=== PATIENT | male | born 1970 ===

== ENCOUNTER 2021-07-04 08:08 | Day surgery (SDC) | payer OTHER ==
[2021-07-01 15:43] VITALS: BMI 29.5
[~2021-07-04 08:08] MED LIST: LACTATED RINGERS 1,000 ML IV SCH
[2021-07-04 09:01] VITALS: RESP 16; TEMP 98
[2021-07-04] MEDS ORDERED: ATROPINE SULFATE 0.4 MG/ML 1 ML VIAL ONE (09:59)
[2021-07-04] MEDS ORDERED: GLYCOPYRROLATE 0.2 MG/ML 2 ML VIAL ONE (09:59)
[2021-07-04] MEDS ORDERED: LIDOCAINE 1% INJ 10MG/ML (20 ML MDV) ONE (09:59)
[2021-07-04] MEDS ORDERED: PROPOFOL 10 MG/ML 20 ML VIAL IV ONE (09:59)
--- NOTE | 2021-07-04 10:01 | P.GSHP ---
History of Present Illness H&P Date: 07/04/21 Chief Complaint: Screening colonoscopy This a 50-year-old male presents today for screening colonoscopy. Patient denies any significant GI complaints. Past Medical History Past Medical History: Hyperlipidemia, Hypertension History of Any Multi-Drug Resistant Organisms: None Reported Additional Past Anesthesia/Blood Transfusion Reaction / Comment(s): Has never had anesthesia Smoking Status: Never smoker - Past Family History Mother Family Medical History: Cancer Medications and Allergies Home Medications Medication Instructions Recorded Confirmed Type Aspirin 81 mg PO DAILY 07/01/21 07/01/21 History Atorvastatin [Lipitor] 1 tab PO DAILY 07/01/21 07/04/21 History Bp Medication(Unknown Name) 1 tab PO DAILY 07/01/21 07/04/21 History Cholecalciferol (Vitamin D3) 12.5 mcg PO DAILY 07/01/21 07/01/21 History [Vitamin D3 (500 Iu/5 ML)] Allergies Allergy/AdvReac Type Severity Reaction Status Date / Time No Known Allergies Allergy Verified 07/04/21 08:59 Surgical - Exam Vital Signs Temp Pulse Resp BP Pulse Ox 98.0 F 64 16 141/76 99 07/04/21 09:00 07/04/21 09:00 07/04/21 09:00 07/04/21 09:00 07/04/21 09:00 - General well developed, well nourished, no distress - Eyes PERRL - ENT normal pinna - Neck no masses - Respiratory normal expansion - Cardiovascular Rhythm: regular - Abdomen Abdomen: soft, non tender Assessment and Plan Assessment: We'll perform screening colonoscopy.
--- NOTE | 2021-07-04 10:23 | P.OP ---
Date of Procedure: 07/04/21 Preoperative Diagnosis: Screening colonoscopy Postoperative Diagnosis: Normal colonoscopy Procedure(s) Performed: Colonoscopy Anesthesia: MAC Surgeon: Aj Dumont Pathology: none sent Condition: stable Disposition: PACU Description of Procedure: No PROCEDURE: The patient was placed on the endoscopy table in the lateral position. Digital rectal examination was performed which revealed no abnormalities. The prostate was symmetrical without nodules. Flexible colonoscope was then placed in the patient's anus and passed throughout the entire colon. The ileocecal valve was visualized. The cecum, ascending, transverse, descending and sigmoid colon were normal. The rectum was normal as well. There were no masses, polyps or diverticula noted in the entire colon. SUMMARY OF FINDINGS: Normal colonoscopy.
[2021-07-04 10:40] VITALS: BP 139/95; PULSE 74
== END 2021-07-04 11:26 | disposition home or self-care (01) ==
LOC: ORWHC2ENDO 08:08 → EDBD 10:05 → ORWHC2ENDO 11:26
PROVIDERS: ATTEND Surgery
DX: Z12.11 Encounter for screening for malignant neoplasm of colon (principal); E78.5 Hyperlipidemia, unspecified; I10 Essential (primary) hypertension; Z79.899 Other long term (current) drug therapy; Z79.82 Long term (current) use of aspirin; Z80.9 Family history of malignant neoplasm, unspecified; J45.909 Unspecified asthma, uncomplicated
CPT/HCPCS: J0461; J2001; J2704; G0121; 45378

== ENCOUNTER 2024-08-20 09:07 | Emergency (ER) | payer OTHER ==
[2024-08-20 09:12] VITALS: TEMP 98
--- NOTE | 2024-08-20 09:22 | ED ---
Abdominal Pain HPI - General Chief Complaint: Abdominal Pain Stated Complaint: R side abd pain Time Seen by Provider: 08/20/24 09:13 Source: patient, family, RN notes reviewed Mode of arrival: ambulatory Limitations: no limitations - History of Present Illness Initial Comments: This is a 53-year-old male who presents to the emergency department for right flank pain. States that it started around 3 AM and woke him from his sleep. Pain radiates into the right lower quadrant. He has thrown up 3 times. Denies any urinary symptoms or changes in bowel habits. Denies any history of kidney stones or similar symptoms in the past. He has not had any fevers or chills. MD Complaint: abdominal pain, flank pain - Related Data Home Medications Medication Instructions Recorded Confirmed Aspirin 81 mg PO DAILY 07/01/21 07/01/21 Atorvastatin [Lipitor] 1 tab PO DAILY 07/01/21 07/04/21 Bp Medication(Unknown Name) 1 tab PO DAILY 07/01/21 07/04/21 Cholecalciferol (Vitamin D3) 12.5 mcg PO DAILY 07/01/21 07/01/21 [Vitamin D3 (500 Iu/5 ML)] Previous Rx's Medication Instructions Recorded HYDROcodone/APAP 7.5-325MG [[place] 1 tab PO Q6HR PRN 3 Days #12 tab 08/20/24 7.5-325] Ketorolac [Toradol] 10 mg PO Q6HR PRN #15 tab 08/20/24 Ondansetron Odt [Zofran Odt] 4 mg PO Q8HR PRN #15 tab 08/20/24 Tamsulosin [Flomax] 0.4 mg PO DAILY 7 Days #7 cap 08/20/24 Allergies Allergy/AdvReac Type Severity Reaction Status Date / Time No Known Allergies Allergy Verified 07/04/21 08:59 Review of Systems ROS Statement: Those systems with pertinent positive or pertinent negative responses have been documented in the HPI. ROS Other: All systems not noted in ROS Statement are negative. Past Medical History Past Medical History: Hyperlipidemia, Hypertension History of Any Multi-Drug Resistant Organisms: None Reported Past Surgical History: No Surgical Hx Reported Additional Past Anesthesia/Blood Transfusion Reaction / Comment(s): Has never had anesthesia Past Psychological History: No Psychological Hx Reported Smoking Status: Never smoker - Past Family History Mother Family Medical History: Cancer General Exam Limitations: no limitations General appearance: alert, in distress Head exam: Present: atraumatic, normocephalic, normal inspection Respiratory exam: Present: normal lung sounds bilaterally. Absent: respiratory distress, wheezes, rales, rhonchi, stridor Cardiovascular Exam: Present: regular rate, normal rhythm, normal heart sounds. Absent: systolic murmur, diastolic murmur, rubs, gallop, clicks GI/Abdominal exam: Present: soft, tenderness (RLQ), normal bowel sounds. Absent: distended Back exam: Present: CVA tenderness (R). Absent: CVA tenderness (L) Neurological exam: Present: alert, oriented X3, CN II-XII intact Psychiatric exam: Present: normal affect, normal mood Skin exam: Present: warm, dry, intact, normal color. Absent: rash Course Vital Signs 08/20/24 08/20/24 09:10 11:29 Temperature 98 F 98 F Pulse Rate 58 L 78 Respiratory 20 18 Rate Blood Pressure 188/101 134/78 O2 Sat by Pulse 100 98 Oximetry Medical Decision Making - Medical Decision Making This is a 53-year-old male who presents to the emergency department for right flank pain. Was pt. sent in by a medical professional or institution? @ -No Did you speak to anyone other than the patient for history? @ -No Did you review nursing and triage notes? @ -Yes, and I agree, it is accurate with regards to the patient's symptoms. Were old charts reviewed? @ -No Differential Diagnosis? @ -Differential Flank Pain: UTI, pyelonephritis, kidney stone, musculoskeletal, pancreatitis, cholecystitis, this is not meant to be an all-inclusive list. EKG interpreted by me (3pts min.)? @ -Not obtained X-rays interpreted by me (1pt min.)? @ -Not obtained CT interpreted by me (1pt min.)? @ -CT scan of the abdomen and pelvis obtained. My interpretation identifies a right ureteral calculus. U/S interpreted by me (1pt. min.)? @ -Not obtained What testing was considered but not performed? (CT, X-rays, U/S, labs)? Why? @ -None What meds were considered but not given? Why? @ -None Did you discuss the management of the patient with other professionals? @ -No Did you reconcile home meds? @ -No Was smoking cessation discussed for >3mins.? @ -No Was critical care preformed (if so, how long)? @ -No Were there social determinants of health that impacted care today? How? (Homelessness, low income, unemployed, alcoholism, drug addiction, transportat ion, low edu. Level, literacy, decrease access to med. care, senior care, rehab)? @ -No Was there de-escalation of care discussed even if they declined? (Discuss DNR or withdrawal of care, Hospice)? @ -No What co-morbidities impacted this encounter? (DM, HTN, Smoking, COPD, CAD, Cancer, CVA, Hep., AIDS, mental health diagnosis, sleep apnea, morbid obesity)? @ -None Was patient admitted / discharged? @ -Discharged. Lab work demonstrates leukocytosis with a white blood cell count of 12.9 and lactic acid of 2.5. Urinalysis demonstrates blood but is negative for signs of infection. CT scan of the abdomen and pelvis demonstrates marked right hydronephrosis secondary to an obstructing 8 mm UPJ calculus. Symptoms were well controlled in the emergency department. Advised that based on the size and location of the stone, it is very possible he will be unable to pass this on his own. I did offer admission for pain control, however patient states that he is able to manage his pain at this time and would like to try going home first. Prescription for Toradol, [place], Zofran, and Flomax provided. He was also given information for follow-up with urology and advised to call them first thing Thursday morning. Strict return parameters discussed. Patient discharged home in stable condition. Case discussed with ED attending Dr. Topete. Return precautions reviewed in depth, the patient is instructed to return to the emergency department with any new, worsening, or concerning symptoms. Patient verbalized understanding. Undiagnosed new problem with uncertain prognosis? @ -None Drug Therapy requiring intensive monitoring for toxicity (Heparin, Nitro, Insulin, Cardizem)? @ -None Were any procedures done? @ -None Diagnosis/symptom? @ -Right ureteral calculus, hydronephrosis Acute, or Chronic, or Acute on Chronic? @ -Acute Uncomplicated (without systemic symptoms) or Complicated (systemic symptoms)? @ -Uncomplicated Side effects of treatment? @ -None Exacerbation, Progression, or Severe Exacerbation] @ -Not applicable Poses a threat to life or bodily function? @ -No - Lab Data Result diagrams: 08/20/24 09:38 08/20/24 09:38 Lab Results 08/20/24 08/20/24 08/20/24 Range/Units 09:38 09:38 09:38 WBC 12.9 H (3.8-10.6) k/uL RBC 5.80 (4.30-5.90) m/uL Hgb 17.3 (13.0-17.5) gm/dL Hct 51.1 (39.0-53.0) % MCV 88.2 (80.0-100.0) fL MCH 29.8 (25.0-35.0) pg MCHC 33.8 (31.0-37.0) g/dL RDW 13.0 (11.5-15.5) % Plt Count 280 (150-450) k/uL MPV 7.2 Neutrophils % 78 % Lymphocytes % 16 % Monocytes % 4 % Eosinophils % 0 % Basophils % 0 % Neutrophils # 10.0 H (1.3-7.7) k/uL Lymphocytes # 2.1 (1.0-4.8) k/uL Monocytes # 0.5 (0-1.0) k/uL Eosinophils # 0.0 (0-0.7) k/uL Basophils # 0.0 (0-0.2) k/uL Sodium 139 (137-145) mmol/L Potassium 5.5 H (3.5-5.1) mmol/L Chloride 103 (98-107) mmol/L Carbon Dioxide 24 (22-30) mmol/L Anion Gap 12 mmol/L BUN 14 (9-20) mg/dL Creatinine 1.18 (0.66-1.25) mg/dL Est GFR (CKD-EPI)AfAm 81 (>60 ml/min/1.73 sqM) Est GFR (CKD-EPI)NonAf 70 (>60 ml/min/1.73 sqM) Glucose 187 H (74-99) mg/dL Plasma Lactic Acid [place] (0.7-2.0) mmol/L Calcium 10.2 (8.4-10.2) mg/dL Total Bilirubin 1.1 (0.2-1.3) mg/dL AST 45 (17-59) U/L ALT 47 (4-49) U/L Alkaline Phosphatase 71 (38-126) U/L Total Protein 8.2 (6.3-8.2) g/dL Albumin 5.2 H (3.5-5.0) g/dL Urine Color Yellow Urine Appearance Clear (Clear) Urine pH 5.5 (5.0-8.0) Ur Specific [place] 1.025 (1.001-1.035) Urine Protein 1+ H (Negative) Urine Glucose (UA) Trace H (Negative) Urine Ketones Negative (Negative) Urine Blood Small H (Negative) Urine Nitrite Negative (Negative) Urine Bilirubin Negative (Negative) Urine Urobilinogen <2.0 (<2.0) mg/dL Ur Leukocyte Esterase Negative (Negative) Urine RBC 9 H (0-5) /hpf Urine WBC 4 (0-5) /hpf Ur Squamous Epith Cells <1 (0-4) /hpf Calcium Oxalate Crystal Occasional H (None) /hpf Urine Mucus Moderate H (None) /hpf 08/20/24 Range/Units 09:38 WBC (3.8-10.6) k/uL RBC (4.30-5.90) m/uL Hgb (13.0-17.5) gm/dL Hct (39.0-53.0) % MCV (80.0-100.0) fL MCH (25.0-35.0) pg MCHC (31.0-37.0) g/dL RDW (11.5-15.5) % Plt Count (150-450) k/uL MPV Neutrophils % % Lymphocytes % % Monocytes % % Eosinophils % % Basophils % % Neutrophils # (1.3-7.7) k/uL Lymphocytes # (1.0-4.8) k/uL Monocytes # (0-1.0) k/uL Eosinophils # (0-0.7) k/uL Basophils # (0-0.2) k/uL Sodium (137-145) mmol/L Potassium (3.5-5.1) mmol/L Chloride (98-107) mmol/L Carbon Dioxide (22-30) mmol/L Anion Gap mmol/L BUN (9-20) mg/dL Creatinine (0.66-1.25) mg/dL Est GFR (CKD-EPI)AfAm (>60 ml/min/1.73 sqM) Est GFR (CKD-EPI)NonAf (>60 ml/min/1.73 sqM) Glucose (74-99) mg/dL Plasma Lactic Acid [place]undo 2.5 H* (0.7-2.0) mmol/L Calcium (8.4-10.2) mg/dL Total Bilirubin (0.2-1.3) mg/dL AST (17-59) U/L ALT (4-49) U/L Alkaline Phosphatase (38-126) U/L Total Protein (6.3-8.2) g/dL Albumin (3.5-5.0) g/dL Urine Color Urine Appearance (Clear) Urine pH (5.0-8.0) Ur Specific [place] (1.001-1.035) Urine Protein (Negative) Urine Glucose (UA) (Negative) Urine Ketones (Negative) Urine Blood (Negative) Urine Nitrite (Negative) Urine Bilirubin (Negative) Urine Urobilinogen (<2.0) mg/dL Ur Leukocyte Esterase (Negative) Urine RBC (0-5) /hpf Urine WBC (0-5) /hpf Ur Squamous Epith Cells (0-4) /hpf Calcium Oxalate Crystal (None) /hpf Urine Mucus (None) /hpf - Radiology Data Radiology results: report reviewed, image reviewed Disposition Clinical Impression: Right ureteral calculus, Hydronephrosis Disposition: HOME SELF-CARE Instructions (If sedation given, give patient instructions): Renal Colic (ED), Hydronephrosis (ED), Ureteral Stones (ED) Additional Instructions: Return to the emergency department with any new, worsening, or concerning symptoms. Take the Toradol with Tylenol as needed for pain relief. If you choose to take the Toradol, do not take any other anti-inflammatories such as ibuprofen, take one or the other. Take the [place] sparingly when your pain is the most severe. Take the Zofran up to every 8 hours as needed for nausea and vomiting. Take the Flomax daily for 7 days, unless your pain resolves, in which case you can discontinue it sooner. Contact the urologist listed below first thing Thursday morning. Let them know that you were seen in the emergency department and found to have an 8 mm stone in your ureter. They will schedule you for a follow-up appointment. Prescriptions: Tamsulosin [Flomax] 0.4 mg PO DAILY 7 Days #7 cap HYDROcodone/APAP 7.5-325MG [[place] 7.5-325] 1 tab PO Q6HR PRN 3 Days #12 tab PRN Reason: Pain Ketorolac [Toradol] 10 mg PO Q6HR PRN #15 tab PRN Reason: Pain Ondansetron Odt [Zofran Odt] 4 mg PO Q8HR PRN #15 tab PRN Reason: Nausea And Vomiting Is patient prescribed a controlled substance at d/c from ED?: Yes When asked, does pt state using other controlled substances?: No If prescribed controlled substance>3 days was MAPS reviewed?: Prescribed <3 Days Referrals: Alicia Payton MD [Primary Care Provider] - 1-2 days To Britton MD [STAFF PHYSICIAN] - 1-2 days Time of Disposition: 11:19
[2024-08-20] MEDS: SODIUM CHLORIDE 0.9% 1,000 ML IV STA (09:30)
[2024-08-20] MEDS: KETOROLAC 15 MG/ML 1 ML VIAL IVP STA ×2 (09:31→10:49)
[2024-08-20] MEDS: ONDANSETRON 4 MG/2 ML VIAL IVP STA (09:32)
[2024-08-20] MEDS: MORPHINE SULFATE 4 MG/ML SYRINGE IVP STA (09:34)
[2024-08-20 10:01] LABS: Basophils % (A) 0 %; Eosinophils % (A) 0 %; HCT 51.1 % (39.0-53.0); HGB 17.3 gm/dL (13.0-17.5); Lymphocytes # (A) 2.1 k/uL (1.0-4.8); Lymphocytes % (A) 16 %; MCH 29.8 pg (25.0-35.0); MCHC 33.8 g/dL (31.0-37.0); MCV 88.2 fL (80.0-100.0); Mean Platelet Volume 7.2; Monocytes # (A) 0.5 k/uL (0-1.0); Monocytes % (A) 4 %; Neutrophils % (A) 78 %; Platelet Count 280 k/uL (150-450); WBC 12.9 k/uL (3.8-10.6)
[2024-08-20 10:13] LABS: Appearance,Urine Clear (Clear); Bilirubin,Urine Negative (Negative); Blood,Urine Small (Negative); Calcium Oxalate Crystals,Urine Occasional /hpf; Color,Urine Yellow; Glucose,Urine (UA) Trace (Negative); Ketones,Urine Negative (Negative); Leukocyte Esterase,Urine Negative (Negative); Mucus,Urine Moderate /hpf; Nitrite,Urine Negative (Negative); PH, Urine 5.5 (5.0-8.0); Protein,Urine 1+ (Negative); RBC,Urine 9 /hpf (0-5); Specific Gravity,Urine 1.025 (1.001-1.035); Squamous Epithelial Cell,Urine <1 /hpf (0-4); Urobilinogen,Urine <2.0 mg/dL (<2.0); WBC,Urine 4 /hpf (0-5)
[2024-08-20 10:22] LABS: ALT 47 U/L (4-49); African American GFR (CKD) 81 (>60 ml/min/1.73 sqM); Anion Gap 12 mmol/L; Blood Urea Nitrogen 14 mg/dL (9-20); Calcium 10.2 mg/dL (8.4-10.2); Carbon Dioxide 24 mmol/L (22-30); Chloride 103 mmol/L (98-107); Glucose 187 mg/dL (74-99); Non-African American GFR(CKD) 70 (>60 ml/min/1.73 sqM); Sodium 139 mmol/L (137-145); Total Bilirubin 1.1 mg/dL (0.2-1.3)
--- NOTE | 2024-08-20 10:34 | CT ---
EXAMINATION TYPE: CT abdomen pelvis wo con DATE OF EXAM: 08/20/2024 HISTORY: RT flank pain CT DLP: 700.4 mGycm. Automated Exposure Control for Dose Reduction was Utilized. TECHNIQUE: CT scan of the abdomen and pelvis is performed without oral or IV contrast. COMPARISON: None FINDINGS: Within the limitations of a non-contrast study, the following observations are made. The lungs are clear. Gallbladder is normal and there is no gallstone, wall thickening, pericholecystic fluid or distention . There is no biliary ductal dilatation. There is no organomegaly of the liver, pancreas, spleen or adrenal glands. There is marked right hydronephrosis secondary to an 8 mm obstructing UPJ calculus. The left kidney i s unremarkable without calcification or hydronephrosis. The caliber of the abdominal aorta is normal and there is no retroperitoneal adenopathy or hemorrhage . The bowel loops are normal in caliber is no evidence of obstruction. No inflammatory changes are iden tified in the mesentery and there is no free intraperitoneal air or fluid. There is no pelvic mass, free fluid, abscess or adenopathy. There is mild diverticulosis of the colon without CT evidence of diverticulitis. The osseous structures and soft tissues are unremarkable. IMPRESSION: Marked right hydronephrosis secondary to an obstructing 8 mm UPJ calculus [facility], , 08/20/2024 10:32 AM
[2024-08-20 10:57] LABS: Potassium 5.5 mmol/L (3.5-5.1); Total Protein 8.2 g/dL (6.3-8.2)
[2024-08-20 10:58] LABS: AST 45 U/L (17-59); Albumin 5.2 g/dL (3.5-5.0); Alkaline Phosphatase 71 U/L (38-126)
[2024-08-20] MEDS: ACET/COD 300 MG/30 MG STARTER PACK 6 TAB BTL PO STA (11:26)
[2024-08-20 11:30] VITALS: BP 134/78; PULSE 78; RESP 18
== END 2024-08-20 11:30 | disposition home or self-care (01) ==
LOC: EC 09:07
DX: N13.2 Hydronephrosis with renal and ureteral calculous obstruction (principal)
CPT/HCPCS: 36415; 80053; 83605; 85025; 81001; 74176; 99284; 96374; 96375 ×2; 96376; 96361; J2270; J2405; J1885

== ENCOUNTER → 2024-08-29 | Outpatient (CLI) | payer OTHER ==
--- NOTE | 2024-08-29 08:01 | XR ---
EXAMINATION TYPE: XR KUB DATE OF EXAM: 08/29/2024 Comparison: CT 08/20/2024 Clinical History: 53-year-old male history of right-sided stone, N20.0 calculus Findings: Moderate stool right side of the abdomen. Air extends distally to the rectum. Nonobstructive bowel ga s pattern. 8 mm stone right paramedian mid abdomen within the mid ureter, fairly similar location fro m patient's prior CT. Impression: 8 mm stone mid right ureter, similar compared to 08/20/2024. [facility], , 08/29/2024 7:59 AM
== END | disposition home or self-care (01) ==
LOC: RADXRMAIN 05:48
PROVIDERS: ATTEND Urology
DX: N20.0 Calculus of kidney (principal)
CPT/HCPCS: 74018

== ENCOUNTER 2024-08-31 09:04 | Day surgery (SDC) | payer OTHER ==
--- NOTE | 2024-08-30 21:00 | P.GSHP ---
History of Present Illness H&P Date: 08/30/24 53 yo male with a 8 mm right ureteral stone in the mid to proximal ureter with persistent pain. He was given options of treatment and comes for a right ureteroscopy with laser lithostripsy and possible stent. The risks and coplictions have been outlines. He is afebrile and there is no evidence of uti. this is his first stone. - Constitutional Constitutional: Denies chills, Denies fever - EENT Eyes: denies blurred vision, denies pain Ears, nose, mouth and throat: Denies headache, Denies sore throat - Cardiovascular Cardiovascular: Denies chest pain, Denies shortness of breath - Respiratory Respiratory: Denies cough, Denies 7 - Gastrointestinal Gastrointestinal: Denies abdominal pain, Denies diarrhea, Denies nausea, Denies vomiting - Genitourinary (Female) Genitourinary: Denies dysuria, Denies hematuria - Genitourinary (Male) Genitourinary: Denies dysuria, Denies hematuria - Musculoskeletal Musculoskeletal: Denies myalgias - Integumentary Integumentary: Denies pruritus, Denies rash - Neurological Neurological: Denies numbness, Denies weakness - Psychiatric Psychiatric: Denies anxiety, Denies depression - Endocrine Endocrine: Denies fatigue, Denies weight change Past Medical History Past Medical History: Hyperlipidemia, Hypertension Additional Past Medical History / Comment(s): kidney stones History of Any Multi-Drug Resistant Organisms: None Reported Past Surgical History: No Surgical Hx Reported Past Anesthesia/Blood Transfusion Reactions: No Reported Reaction Additional Past Anesthesia/Blood Transfusion Reaction / Comment(s): Has never had anesthesia Smoking Status: Never smoker - Past Family History Mother Family Medical History: Cancer Medications and Allergies Home Medications Medication Instructions Recorded Confirmed Type Ketorolac [Toradol] 10 mg PO Q6HR PRN #15 tab 08/20/24 08/30/24 Rx Ondansetron Odt [Zofran Odt] 4 mg PO Q8HR PRN #15 tab 08/20/24 08/30/24 Rx HYDROcodone/APAP 5-325MG [[place] 1 tab PO Q6H PRN 08/24/24 08/30/24 History 5-325] Allergies Allergy/AdvReac Type Severity Reaction Status Date / Time No Known Allergies Allergy Verified 08/30/24 08:52 Results - Imaging Abdominal x-ray: report reviewed, image reviewed CT scan - abdomen: report reviewed, image reviewed CT scan - pelvis: report reviewed, image reviewed Assessment and Plan Assessment: Impression Right ureteral stone with colic Plan: right ureteroscopy with laser lithotripsy and possible stent.
--- NOTE | 2024-08-31 09:41 | XR ---
EXAMINATION TYPE: XR KUB DATE OF EXAM: 08/31/2024 HISTORY: Pain Comparison: 08/29/2024 Single KUB is submitted for interpretation. Findings: Right renal calculi: None Visualized. Right ureteral calculi: Right ureteral calculus measuring 8 mm is noted in the right L3 transverse pr ocess and appears to have migrated approximately 1 cm. Left renal calculi: None Visualized. Left ureteral calculi: None Visualized. Pelvic calcifications: None Visualized. Bowel gas pattern is unremarkable. No free air. No mass effects. IMPRESSION: 1. Right ureteral calculus measuring 8 mm is noted at the right L3 transverse process level and appea rs to have migrated approximately 1 cm. [facility], , 08/31/2024 9:38 AM
[2024-08-31] MEDS: ONDANSETRON 4 MG/2 ML VIAL IVP ONE (09:53)
[2024-08-31] MEDS: DEXAMETHASONE SOD PHOSPHATE 4 MG/ML 1 ML VIAL IV ONE (09:53)
[2024-08-31] MEDS: LACTATED RINGERS 1,000 ML IV SCH (09:56)
[2024-08-31] MEDS: IV FLUID CONTINUATION 1,000 ML IV ONE ×2 (09:56→12:19)
[2024-08-31] MEDS ORDERED: GLYCOPYRROLATE 0.2 MG/ML 2 ML VIAL ONE (11:19)
[2024-08-31] MEDS ORDERED: PHENYLEPHRINE-0.9% NACL SYG 1,000 MCG/10 ML SYRINGE ONE (11:19)
[2024-08-31] MEDS ORDERED: PROPOFOL 10 MG/ML 20 ML VIAL IV ONE (11:19)
[2024-08-31] MEDS ORDERED: LIDOCAINE 1% INJ 10MG/ML (20 ML MDV) ONE (11:19)
[2024-08-31] MEDS ORDERED: fentaNYL (PF) 50 MCG/ML 2 ML AMP ONE (11:19)
[2024-08-31] MEDS ORDERED: MIDAZOLAM 2 MG/2 ML VIAL ONE (11:19)
--- NOTE | 2024-08-31 12:17 | P.OP ---
Date of Procedure: 08/31/24 Preoperative Diagnosis: right ureteral calculus Postoperative Diagnosis: same Procedure(s) Performed: cystoscopy, right ureteroscopy with laser lithotripsy and stone basketing Anesthesia: MORRO Surgeon: Ulises Baumann Estimated Blood Loss (ml): 0 Pathology: other (stone) Condition: stable Disposition: PACU Indications for Procedure: patient is 53. He has an 8 mm mid to proximal right ureteral stone with colic he comes for right ureteroscopy and laser lithotripsy Description of Procedure: patient brought to the operating suite. He is given a general anesthetic. He is placed lithotomy position with a sterile prep and drape. The stone was seen fluoroscopically. With a 21-Kyr[place]z sheath and Foroblique lens the urethra is visualized is normal the prosthetic urethra is not obstructing. The ureteral orifices are normal. The bladder mucosa is unremarkable. An 035 wires passed up the right ureter by the stone into the kidney. Over the wire is then passed an 11/13-[place] reentry sheath. The inner sheath is removed. Through the outer sheath the flexible ureteroscope was passed up to the stone. With the 200 laser probe the stone was broken into tiny fragments the largest of which are basketed looked throughout the kidney that no remaining stones. A lot of ureteroscopy does not identify and swelling to leave a stent. The bladder is drained the patient is awakened and returned recovery room good condition. He tolerated procedure well. Blood loss is negligible. He'll be discharged home upon recovery and found the office in one week.
[2024-08-31 12:31] VITALS: TEMP 97
[2024-08-31 12:47] VITALS: RESP 16
[2024-08-31] MEDS: HYDROmorphone 0.5 MG/0.5 ML SYRINGE IVP PRN (13:03)
[2024-08-31] MEDS: KETOROLAC 15 MG/ML 1 ML VIAL IVP STA (13:18)
--- NOTE | 2024-08-31 13:22 | FL ---
Fluoroscopy History: URETERAL STONE 4 SEC FL .[id number] DAP dose [facility], , 08/31/2024 1:19 PM
[2024-08-31] MEDS: hydrALAZINE HCL 20 MG/ML 1 ML VIAL IVP STA (13:31)
[2024-08-31 14:05] VITALS: BP 151/97; PULSE 76
== END 2024-08-31 14:25 | disposition home or self-care (01) ==
LOC: OR 09:04
PROVIDERS: ATTEND Urology
CPT/HCPCS: 74018; 82365; 84132

== ENCOUNTER 2025-01-26 22:16 | Emergency (ER) | payer OTHER ==
[2025-01-26 22:24] VITALS: TEMP 97.9
--- NOTE | 2025-01-26 22:38 | ED ---
Chest Pain HPI - General Chief Complaint: Chest Pain Stated Complaint: head and chest pain Time Seen by Provider: 01/26/25 22:36 Source: patient Mode of arrival: wheelchair Limitations: language barrier - History of Present Illness Initial Comments: This patient is a 54-year-old man presenting to have evaluation of chest pain that was present since shortly after he woke up this morning. He states that he subsequently developed dizzy feeling and headache and therefore arrives to have evaluation here. MD Complaint: chest pain Onset/Timin -: hour(s) Onset: awoke with symptoms Pain Location: left chest Pain Radiation: none Severity: moderate Quality: other (Pressure) Consistency: constant Improves With: nothing Worsens With: nothing Anginal Symptoms: diaphoresis, dyspnea Treatments Prior to Arrival: none - Related Data Home Medications Medication Instructions Recorded Confirmed HYDROcodone/APAP 5-325MG [[place] 1 tab PO Q6H PRN 08/24/24 08/31/24 5-325] Previous Rx's Medication Instructions Recorded Ketorolac [Toradol] 10 mg PO Q6HR PRN #15 tab 08/20/24 Ondansetron Odt [Zofran Odt] 4 mg PO Q8HR PRN #15 tab 08/20/24 Albuterol Inhaler [Ventolin Hfa 1 - 2 puff INHALATION Q6H PRN #1 02/05/25 Inhaler] each Azithromycin [Zithromax] 500 mg PO DAILY #5 tab 02/05/25 Benzonatate [Tessalon Perles] 100 mg PO TID PRN #15 capsule 02/05/25 Allergies Allergy/AdvReac Type Severity Reaction Status Date / Time No Known Allergies Allergy Verified 02/05/25 07:40 Review of Systems ROS Statement: Those systems with pertinent positive or pertinent negative responses have been documented in the HPI. ROS Other: All systems not noted in ROS Statement are negative. Constitutional: Denies: fever, chills Respiratory: Denies: cough, dyspnea Cardiovascular: Reports: chest pain. Denies: palpitations, orthopnea, edema, syncope Gastrointestinal: Denies: abdominal pain, nausea, vomiting, diarrhea Genitourinary: Denies: dysuria, hematuria Musculoskeletal: Denies: back pain Skin: Denies: rash Neurological: Denies: headache, weakness, numbness EKG Findings - EKG Results: EKG: interpreted by ERMD, sinus rhythm (Rate 81 bpm), normal axis, normal QRS - Blocks, [place], Hypertrophy, ST Abn: Repolarization changes or abnormalities: nonspecific abnormality, ST segment, and/or T wave Past Medical History Past Medical History: Hyperlipidemia, Hypertension Additional Past Medical History / Comment(s): kidney stones History of Any Multi-Drug Resistant Organisms: None Reported Past Surgical History: No Surgical Hx Reported Past Anesthesia/Blood Transfusion Reactions: No Reported Reaction Additional Past Anesthesia/Blood Transfusion Reaction / Comment(s): Has never had anesthesia Past Psychological History: No Psychological Hx Reported Smoking Status: Never smoker Past Alcohol Use History: None Reported Past Drug Use History: None Reported - Past Family History Mother Family Medical History: Cancer General Exam Limitations: no limitations General appearance: alert, in no apparent distress Head exam: Present: atraumatic, normocephalic Eye exam: Present: normal appearance. Absent: scleral icterus, conjunctival injection ENT exam: Present: normal oropharynx Neck exam: Present: normal inspection Respiratory exam: Present: normal lung sounds bilaterally. Absent: respiratory distress, wheezes, rales, rhonchi, stridor, accessory muscle use Cardiovascular Exam: Present: regular rate, normal rhythm, normal heart sounds. Absent: systolic murmur, diastolic murmur, rubs, gallop GI/Abdominal exam: Present: soft. Absent: distended, tenderness, guarding, rebound, rigid, mass, pulsatile mass, hernia Extremities exam: Present: normal inspection, normal capillary refill. Absent: pedal edema, calf tenderness Back exam: Present: normal inspection. Absent: CVA tenderness (R), CVA tenderness (L) Neurological exam: Present: alert Skin exam: Present: warm, dry, intact, normal color. Absent: rash Course Vital Signs 01/26/25 01/26/25 01/26/25 22:20 23:05 23:26 Temperature 97.9 F Pulse Rate 60 76 84 Respiratory 18 18 18 Rate Blood Pressure 170/101 155/104 133/99 O2 Sat by Pulse 98 98 96 Oximetry 01/27/25 00:00 Temperature Pulse Rate 77 Respiratory 16 Rate Blood Pressure 138/77 O2 Sat by Pulse 98 Oximetry Chest Pain MDM - MDM The patient had chest x-ray that I interpreted as negative for acute infiltrate, pneumothorax, congestive heart failure Was pt. sent in by a medical professional or institution (Dr., PA, PHONE TECHNICIAN, urgent care, hospital, or assisted...) When possible be specific @ -Differential Chest Pain: Stable Angina, Unstable Angina, STEMI, NSTEMI Aortic Dissection, Pneumothorax, Musculoskeletal, Esophageal Spasm GERD, Cholecystitis, Pancreatitis, Zoster, this is not meant to be an all-inclusive list. Did you speak to anyone other than the patient for history (EMS, parent, family, police, friend...)? What history was obtained from this source @ -[No] Did you review nursing and triage notes (agree or disagree)? Why? @ -[I reviewed and agree with nursing and triage notes] Were old charts reviewed (outside hosp., previous admission, EMS record, old EKG, old radiological studies, urgent care reports/EKG's, assisted records)? Report findings @ -[No old charts were reviewed] Differential Diagnosis (chest pain, altered mental status, abdominal pain women, abdominal pain men, vaginal bleeding, weakness, fever, dyspnea, syncope, headache, dizziness, GI bleed, back pain, seizure, CVA, palpatations, mental health, musculoskeletal)? @ -[not applicable] EKG interpreted by me (3pts min.). @ -[I interpreted as above X-rays interpreted by me (1pt min.). @ -[I interpreted as above CT interpreted by me (1pt min.). @ -[None done] U/S interpreted by me (1pt. min.). @ -[None done] What testing was considered but not performed or refused? (CT, X-rays, U/S, labs)? Why? @ -[None] What meds were considered but not given or refused? Why? @ -[None] Did you discuss the management of the patient with other professionals (professionals i.e. SHAYY Zacarias, PHONE TECHNICIAN, lab, RT, psych nurse, social professionals, counselor nurses' association, teacher, transportation officer, outpatient case manager)? Give summary @ -[No] Was smoking cessation discussed for >3mins.? @ -[No] Was critical care preformed (if so, how long)? @ -[No] Were there social determinants of health that impacted care today? How? (Homelessness, low income, unemployed, alcoholism, drug addiction, transportation, low edu. Level, literacy, decrease access to med. care, senior living, rehab)? @ -[No] Was there de-escalation of care discussed even if they declined (Discuss DNR or withdrawal of care, Hospice)? DNR status @ -[No] What co-morbidities impacted this encounter? (DM, HTN, Smoking, COPD, CAD, Cancer, CVA, ARF, Chemo, Hep., AIDS, mental health diagnosis, sleep apnea, morbid obesity)? @ -[None] Was patient admitted / discharged? Hospital course, mention meds given and route, prescriptions, significant lab abnormalities, going to OR and other pertinent info. @ -[Patient is 54-year-old man presenting to have evaluation of chest pain. The initial workup is negative. At this point the patient would like to continue workup as outpatient and he does appear stable for this. Discussed appropriate further care and follow-up as well as return parameters Undiagnosed new problem with uncertain prognosis? @ -[No] Drug Therapy requiring intensive monitoring for toxicity (Heparin, Nitro, Insulin, Cardizem)? @ -[No] Were any procedures done? @ -[No] Diagnosis/symptom? @ -[d acute chest pain Acute, or Chronic, or Acute on Chronic? @ -[Acute uncomplicated Uncomplicated (without systemic symptoms) or Complicated (systemic symptoms)? @ -[default] Side effects of treatment? @ -[No] Exacerbation, Progression, or Severe Exacerbation? @ -[No] Poses a threat to life or bodily function? How? (Chest pain, [place], [place], pneumonia, PE, COPD, DKA, ARF, appy, cholecystitis, CVA, Diverticulitis, Homicidal, Suicidal, threat to staff... and all critical care pts) @ -[No] All treatments are based on ideal body weight as in ED triage Disposition Clinical Impression: Chest pain Disposition: HOME SELF-CARE Condition: Good Instructions (If sedation given, give patient instructions): Chest Pain (ED) Is patient prescribed a controlled substance at d/c from ED?: No Referrals: Alicia Payton MD [Primary Care Provider] - 1-2 days Luis A Gillespie MD [STAFF PHYSICIAN] - 1-2 days
[2025-01-26 22:58] LABS: Basophils % (A) 0 %; Eosinophils # (A) 0.1 k/uL (0-0.7); Eosinophils % (A) 1 %; HCT 51.5 % (39.0-53.0); HGB 16.9 gm/dL (13.0-17.5); Lymphocytes # (A) 3.2 k/uL (1.0-4.8); Lymphocytes % (A) 29 %; MCH 29.1 pg (25.0-35.0); MCHC 32.9 g/dL (31.0-37.0); MCV 88.3 fL (80.0-100.0); Mean Platelet Volume 7.3; Monocytes # (A) 0.6 k/uL (0-1.0); Monocytes % (A) 6 %; Neutrophils # (A) 6.8 k/uL (1.3-7.7); Neutrophils % (A) 61 %; Platelet Count 286 k/uL (150-450); RBC 5.83 m/uL (4.30-5.90); RDW 12.7 % (11.5-15.5); WBC 11.2 k/uL (3.8-10.6)
[2025-01-26] MEDS: ASPIRIN 81 MG PO STA (23:03)
[2025-01-26] MEDS: NITROGLYCERIN SL TABS 0.4 MG TAB SUBLINGUAL STA (23:04)
[2025-01-26 23:07] LABS: ALT 109 U/L (4-49); AST 59 U/L (17-59); African American GFR (CKD) >90 (>60 ml/min/1.73 sqM); Albumin 4.7 g/dL (3.5-5.0); Alkaline Phosphatase 95 U/L (38-126); Amylase 72 U/L (30-110); Anion Gap 10 mmol/L; Blood Urea Nitrogen 15 mg/dL (9-20); Carbon Dioxide 29 mmol/L (22-30); Chloride 97 mmol/L (98-107); Glucose 170 mg/dL (74-99); Lipase 283 U/L (23-300); Magnesium 2.2 mg/dL (1.6-2.3); Non-African American GFR(CKD) 86 (>60 ml/min/1.73 sqM); Potassium 3.8 mmol/L (3.5-5.1); Sodium 136 mmol/L (137-145); Total Bilirubin 0.7 mg/dL (0.2-1.3); Total Protein 7.5 g/dL (6.3-8.2)
[2025-01-26 23:12] LABS: Partial Thromboplastin Time 22.9 sec (22.0-30.0); Prothrombin Time 10.7 sec (10.0-12.5)
[2025-01-26 23:14] LABS: NT-Pro-B-Type Natriuretic Pept <20 pg/mL
--- NOTE | 2025-01-26 23:49 | XR ---
EXAM: XR Chest, 2 Views CLINICAL HISTORY: ITS.REASON XR Reason: Chest Pain TECHNIQUE: Frontal and lateral views of the chest. COMPARISON: No relevant prior studies available. FINDINGS: Lungs: No consolidation. Pleural space: No pleural effusion or pneumothorax. Heart: No cardiomegaly or pulmonary vascular congestion. Bones/joints: No acute fracture. No dislocation. IMPRESSION: No evidence of acute cardiopulmonary disease.
[2025-01-27 00:22] VITALS: BP 138/77; PULSE 77; RESP 16
== END 2025-01-27 00:28 | disposition home or self-care (01) ==
LOC: EC 22:16
DX: R07.9 Chest pain, unspecified (principal)
CPT/HCPCS: 36415; 71046; 80053; 82150; 83690; 83735; 83880; 84484; 85025; 85379; 85610; 85730; 93005; 99285

== ENCOUNTER 2025-02-05 07:26 | Emergency (ER) | payer OTHER ==
[2025-02-05] MEDS: methylPREDNISolone SOD SUCCI 125 MG/2 ML VIAL IM ONE (08:19)
--- NOTE | 2025-02-05 08:38 | ED ---
General Adult HPI - General Chief complaint: Upper Respiratory Infection Stated complaint: Cough Time Seen by Provider: 02/05/25 07:48 Source: patient, RN notes reviewed Mode of arrival: ambulatory Limitations: no limitations, language barrier - History of Present Illness Initial comments: This is a 54-year male with history of hypertension presents emergency department with friend for complaint of URI symptoms over the past 3 days. Patient states that he has been having a dry cough, postnasal drip, congestion and sore throat. He denies fevers, difficulty breathing, abdominal pain, nausea/vomiting, or rashes. He feels he is unable to take in a deep breath due to having a severe fear of coughing afterwards. Denies history of COPD or asthma. - Related Data Home Medications Medication Instructions Recorded Confirmed HYDROcodone/APAP 5-325MG [[place] 1 tab PO Q6H PRN 08/24/24 08/31/24 5-325] Previous Rx's Medication Instructions Recorded Ketorolac [Toradol] 10 mg PO Q6HR PRN #15 tab 08/20/24 Ondansetron Odt [Zofran Odt] 4 mg PO Q8HR PRN #15 tab 08/20/24 Albuterol Inhaler [Ventolin Hfa 1 - 2 puff INHALATION Q6H PRN #1 02/05/25 Inhaler] each Azithromycin [Zithromax] 500 mg PO DAILY #5 tab 02/05/25 Benzonatate [Tessalon Perles] 100 mg PO TID PRN #15 capsule 02/05/25 Allergies Allergy/AdvReac Type Severity Reaction Status Date / Time No Known Allergies Allergy Verified 02/05/25 07:40 Review of Systems ROS Statement: Those systems with pertinent positive or pertinent negative responses have been documented in the HPI. ROS Other: All systems not noted in ROS Statement are negative. Past Medical History Past Medical History: Hyperlipidemia, Hypertension Additional Past Medical History / Comment(s): kidney stones History of Any Multi-Drug Resistant Organisms: None Reported Past Surgical History: No Surgical Hx Reported Past Anesthesia/Blood Transfusion Reactions: No Reported Reaction Additional Past Anesthesia/Blood Transfusion Reaction / Comment(s): Has never had anesthesia Past Psychological History: No Psychological Hx Reported Smoking Status: Never smoker Past Alcohol Use History: None Reported Past Drug Use History: None Reported - Past Family History Mother Family Medical History: Cancer General Exam Limitations: no limitations General appearance: alert, in no apparent distress ENT exam: Present: normal exam, mucous membranes moist Neck exam: Present: normal inspection. Absent: tenderness, meningismus, lymphadenopathy Respiratory exam: Present: normal lung sounds bilaterally. Absent: respiratory distress, wheezes, rales, rhonchi, stridor Cardiovascular Exam: Present: regular rate, normal rhythm, normal heart sounds. Absent: systolic murmur, diastolic murmur, rubs, gallop, clicks GI/Abdominal exam: Present: soft, normal bowel sounds. Absent: distended, tenderness, guarding, rebound, rigid Extremities exam: Present: normal inspection, full ROM, normal capillary refill. Absent: tenderness, pedal edema, joint swelling, calf tenderness Back exam: Present: normal inspection Skin exam: Present: warm, dry, intact, normal color. Absent: rash Course Vital Signs 02/05/25 02/05/25 02/05/25 07:37 07:43 09:11 Temperature 97.3 F L Pulse Rate 97 96 Respiratory 17 20 Rate Blood Pressure 145/88 O2 Sat by Pulse 98 Oximetry 02/05/25 02/05/25 09:23 09:42 Temperature 98 F Pulse Rate 96 94 Respiratory 18 Rate Blood Pressure 135/92 O2 Sat by Pulse 97 Oximetry Medical Decision Making - Medical Decision Making Was pt. sent in by a medical professional or institution (SHAYY Zacarias, FLOOR CARE SPECIALIST, urgent care, hospital, or [facility]...) When possible be specific @ -[No] Did you speak to anyone other than the patient for history (EMS, parent, family, police, friend...)? What history was obtained from this source @ -[No] Did you review nursing and triage notes (agree or disagree)? Why? @ -[I reviewed and agree with nursing and triage notes] Were old charts reviewed (outside hosp., previous admission, EMS record, old EKG, old radiological studies, urgent care reports/EKG's, [facility] records)? Report findings @ -[No old charts were reviewed] Differential Diagnosis (chest pain, altered mental status, abdominal pain women, abdominal pain men, vaginal bleeding, weakness, fever, dyspnea, syncope, headache, dizziness, GI bleed, back pain, seizure, CVA, palpatations, mental health, musculoskeletal)? @ -COVID 19, RSV, influenza, pneumonia, acute bronchitis, URI, this list is not all inclusive EKG interpreted by me (3pts min.). @ -None X-rays interpreted by me (1pt min.). @ -X-ray of the chest reveals a possible small Intermatic infiltrate in the lingula which is unchanged from prior study CT interpreted by me (1pt min.). @ -[None done] U/S interpreted by me (1pt. min.). @ -[None done] What testing was considered but not performed or refused? (CT, X-rays, U/S, labs)? Why? @ -[None] What meds were considered but not given or refused? Why? @ -[None] Did you discuss the management of the patient with other professionals (professionals i.e. , PA, FLOOR CARE SPECIALIST, lab, RT, psych nurse, social service director, evidence technician, teacher, affirmative action officer, protective services case worker)? Give summary @ -[No] Was smoking cessation discussed for >3mins.? @ -[No] Was critical care preformed (if so, how long)? @ -[No] Were there social determinants of health that impacted care today? How? (Homelessness, low income, unemployed, alcoholism, drug addiction, transportation, low edu. Level, literacy, decrease access to med. care, [facility], rehab)? @ -[No] Was there de-escalation of care discussed even if they declined (Discuss DNR or withdrawal of care, Hospice)? DNR status @ -[No] What co-morbidities impacted this encounter? (DM, HTN, Smoking, COPD, CAD, Cancer, CVA, ARF, Chemo, Hep., AIDS, mental health diagnosis, sleep apnea, morbid obesity)? @ -[None] Was patient admitted / discharged? Hospital course, mention meds given and route, prescriptions, significant lab abnormalities, going to OR and other pertinent info. @ -Discharge. 54-year-old male presenting with dry cough and URI symptoms. Chest x-ray concerning for pneumonia infiltrate of the viral testing is unremarkable. Patient's provided with dose of [facility] Emergency Department and provided with outpatient prescription for azithromycin, Tessalon Perles, albuterol. Return parameters discussed. Case discussed with Undiagnosed new problem with uncertain prognosis? @ -[No] Drug Therapy requiring intensive monitoring for toxicity (Heparin, Nitro, Insulin, Cardizem)? @ -[No] Were any procedures done? @ -[No] Diagnosis/symptom? @ -pneumonia Acute, or Chronic, or Acute on Chronic? @ -acute Uncomplicated (without systemic symptoms) or Complicated (systemic symptoms)? @ -uncomplicated Side effects of treatment? @ -[No] Exacerbation, Progression, or Severe Exacerbation? @ -[No] Poses a threat to life or bodily function? How? (Chest pain, [place], [place], pneumonia, PE, COPD, DKA, ARF, appy, cholecystitis, CVA, Diverticulitis, Homicidal, Suicidal, threat to staff... and all critical care pts) @ -[No] - Lab Data Lab Results 02/05/25 Range/Units 08:13 Influenza Type A (PCR) Not Detected (Not Detectd) Influenza Type B (PCR) Not Detected (Not Detectd) RSV (PCR) Not Detected (Not Detectd) SARS-CoV-2 (PCR) Not Detected (Not Detectd) Disposition Clinical Impression: Cough, Lingular pneumonia Disposition: HOME SELF-CARE Condition: Stable Instructions (If sedation given, give patient instructions): Pneumonia (ED) Additional Instructions: Please return to the Emergency Department if symptoms worsen or any other concerns. Prescriptions: Benzonatate [Tessalon Perles] 100 mg PO TID PRN #15 capsule PRN Reason: Cough Albuterol Inhaler [Ventolin Hfa Inhaler] 1 - 2 puff INHALATION Q6H PRN #1 each PRN Reason: Shortness Of Breath Azithromycin [Zithromax] 500 mg PO DAILY #5 tab Is patient prescribed a controlled substance at d/c from ED?: No Referrals: Alicia Payton MD [Primary Care Provider] - 1-2 days Time of Disposition: 09:16
--- NOTE | 2025-02-05 08:46 | XR ---
Chest, 2 view. CLINICAL INDICATION: Male, 54 years old with history of cough, MAE COMPARISON: 02/05/2025 TECHNIQUE: PA and lateral views the chest are obtained. FINDINGS: There is a stable small focal opacity in the left lingula which could represent a focal pneumonia. Ri ght lung is clear There is no pleural effusion or pneumothorax. The heart and pulmonary vasculature are normal. The osseous structures are intact IMPRESSION: Possible small pneumonic infiltrate in lingula which is unchanged compared to the prior study.. [facility], , 02/05/2025 8:44 AM
[2025-02-05 08:56] LABS: Influenza A Not Detected (Not Detectd); Influenza B Not Detected (Not Detectd); RSV Not Detected (Not Detectd)
[2025-02-05] MEDS: IPRATROPIUM-ALBUTEROL 3 ML NEB INHALATION STA (09:11)
[2025-02-05 09:43] VITALS: BP 135/92; PULSE 94; RESP 18; TEMP 98
== END 2025-02-05 09:43 | disposition home or self-care (01) ==
LOC: EC 07:26
DX: J18.9 Pneumonia, unspecified organism (principal)
CPT/HCPCS: 94645; 87636; 71046; 99284; 96372; J2919